=== PATIENT | female | born 1955 | race Caucasian/White ===

== ENCOUNTER 2016-11-21 09:03 | Day surgery (SDC) | payer BC ==
[~2016-11-21] VITALS: Ht 167.6 cm; Wt 85.0 kg
--- NOTE | ~2016-11-21 | CON ---
PATIENT'S NAME: JEIMY OTOOLE [facility] AGE: 61 Y [address] ROOM: [place] [address] LOCATION: GOBS ADMIT DATE: 11/21/2016 Consultation DISCHARGE DATE: 11/22/2016 FAMILY PHYSICIAN: Kang Jon MD ATTENDING PHYSICIAN: Azul Roque DATE OF CONSULTATION: 11/22/2016 REFERRING PHYSICIAN: Tony Casillas MD REASON FOR VISIT: Left lower extremity wound. HISTORY OF PRESENT ILLNESS: This is a pleasant 61-year-old female patient who was admitted to [facility] with a rectocele. She is status post posterior colporrhaphy by Dr. Roque. She has a significant history of type 2 diabetes mellitus, depression, osteoarthritis, and varicose veins. The patient endorses a wound to her left lower extremity for about 2 years. Last week, she expressed pus from the site and was treated with a 3 day course of antibiotics by her primary care provider. Since that time, she has noted improvement in the wound. She is currently applying vitamin E ointment to the site. She denies intermittent claudication symptoms. No history of DVT. She does suffer from varicose veins, but has never had a venous ulcer. No previous vascular studies noted. No recent travel noted. Denies pruritus. Denies fevers, chills, or sweats. No weight loss noted. Is planning to discharge home today. Nursing reports a buttocks wound, she did not know she had it until she came to the hospital. She is wondering if that site needs any treatment. PAST MEDICAL HISTORY: Type 2 diabetes mellitus, depression, osteoarthritis, and varicose veins. PAST SURGICAL HISTORY: Breast reduction, right bunion foot surgery, hysterectomy, and posterior colporrhaphy. FAMILY HISTORY: None listed. SOCIAL HISTORY: The patient lives in [place]. She denies tobacco use. ALLERGIES: PENICILLIN. PATIENT'S NAME: JEIMY OTOOLE [facility] AGE: 61 Y [address] ROOM: [address] [place] [address] LOCATION: [facility] ADMIT DATE: 11/21/2016 Consultation DISCHARGE DATE: 11/22/2016 FAMILY PHYSICIAN: Kang Jon MD ATTENDING PHYSICIAN: Azul Roque CURRENT MEDICATIONS: Please refer to the medication administration record. REVIEW OF SYSTEMS: All are negative except as mentioned above in the HPI. PHYSICAL EXAMINATION: VITAL SIGNS: Temperature 97.8, pulse 85, respirations 20, blood pressure 113/60, and pulse oximetry 93%. Height 5 feet and 6 inches and weight 85.0 kg. GENERAL: The patient is alert and oriented x3. In no acute distress. Pleasant with cares. HEENT: Head: Normocephalic and atraumatic. Oral mucosa intact. NEUROLOGICAL: Grossly nonfocal. MUSCULOSKELETAL: Active range of motion in all 4 extremities. EXTREMITIES: +2 pedal pulses. No edema. Capillary refill intact. Extremities warm to touch. No hemosiderin staining. Small telangiectasia noted. SKIN: Left posterior lower extremity wound measures 2.0 cm width x 2.0 cm length. Area is covered with a brown scab. Periwound is slightly erythemic and indurated. No drainage noted. No fluctuance noted. Right lower buttocks and anus has small scattered red scabs. No drainage noted. LABORATORY DATA: White blood cell count 8.1, hemoglobin 12.8, hematocrit 38.6, and platelets 227. ASSESSMENT AND PLAN: Again, this is a pleasant 61-year-old female patient who was admitted to [facility] with a rectocele. She is status post posterior colporrhaphy. Wound Care consulted to evaluate and assess a left lower extremity and right buttocks wound. 1. Left posterior lower extremity wound present for over 2 years now. The patient recently expressed pus from the site and was treated with a 3-day course of antibiotics. It is improving per her report. No signs of arterial disease. No evidence of pressure or trauma. Uncommon presentation of a venous ulcer. Possibly a staph infection. Send the patient with a script for Bactroban 2% ointment to apply to site t.i.d. x14 days. Also sent her with foam Mepilex dressings and skin protector. Instructed her to cover the scab when it has softened with Bactroban ointment. She can apply the foam dressing and leave in place for up to a week. I offered for her to follow up in [facility], however, she prefers to follow up with Dr. Casillas. I gave her my card. If she has future questions or concerns I would be happy to help. 2. Buttock scabs. Possible folliculitis. No evidence of pressure ulcers. We will treat with Bactroban as well. The patient is to follow up with PATIENT'S NAME: JEIMY OTOOLE [facility] AGE: 61 Y [address] ROOM: [address] [place] [address] LOCATION: [facility] ADMIT DATE: 11/21/2016 Consultation DISCHARGE DATE: 11/22/2016 FAMILY PHYSICIAN: Kang Jon MD ATTENDING PHYSICIAN: Azul Roque Dr. as needed. 3. Rectocele. Status post posterior colporrhaphy. I would like to thank Dr. Casillas for this consult. I wish Jeimy arteaga. PEDRO MCCANN APRN FOR MD SURJIT PATEL/jose luis /[id number] d: 11/22/164 t: 11/28/16 1352, CONSULTATION REPORT
--- NOTE | ~2016-11-21 | OR ---
PATIENT'S NAME: DAVID OTOOLE [facility] AGE: 61 Y [address] ROOM: [address] [address] LOCATION: BS ADMIT DATE: 11/21/2016 OR/Procedure Report DISCHARGE DATE: FAMILY PHYSICIAN: Kang Jon MD ATTENDING PHYSICIAN: Azul Roque SURGEON: Azul Roque MD RAILROAD CAR PAINTER: DATE OF PROCEDURE: 11/21/2016 PREOPERATIVE DIAGNOSIS: Third-degree rectocele. POSTOPERATIVE DIAGNOSIS: Third-degree rectocele. PROCEDURE PERFORMED: Posterior colporrhaphy. ANESTHESIA: General endotracheal. BLOOD LOSS: Less than 50 mL. COMPLICATIONS: None. DESCRIPTION OF PROCEDURE: The patient was taken to the operating room and placed under general endotracheal anesthetic. Her legs were placed in the candy-cane stirrups, and she was tipped in Trendelenburg. Her bladder was drained. She was prepped and draped. The posterior vaginal mucosa was injected with dilute Pitressin. The posterior mucosa was opened with the Metzenbaum scissors, and the rectocele was reduced. I thought maybe there was an enterocele, but I did a rectal check, and it felt like it was all rectocele and no enterocele. There really was not any good fascial tissue to pull together. I pulled together what I could in multiple Aida-Ector plication sutures. The vaginal mucosa was then trimmed and closed with 2-0 Vicryl. I placed a vaginal packing with sulfa cream and left a Simon catheter to dependent drainage with clear yellow urine. The patient tolerated the procedure well. We did cover up 2 boil-type areas on her skin on the left labia and the right buttock with Tegaderm to try to keep the vaginal packing clean. This rectocele was significant, and I talked to the patient that I think her failure rate is high, which will probably be the case. We will have to watch things afterwards and talk with her about lifting restrictions. MD LORIN KIMBROUGHP/gildardol PATIENT'S NAME: DAVID OTOOLE [facility] AGE: 61 Y [address] ROOM: [id number] [place], [place] [address] LOCATION: [facility] ADMIT DATE: 11/21/2016 OR/Procedure Report DISCHARGE DATE: FAMILY PHYSICIAN: Kang Jon MD ATTENDING PHYSICIAN: Azul Roque /[id number] d: 11/21/16 1330 t: 12/01/16 0857, OPERATIVE SUMMARY
[~2016-11-21 09:03] MED LIST: AMARYL4 MG PO; CRESTOR10 MG PO; EFFEXOR XR150 MG PO; EFFEXOR XR75 MG PO; FISH OIL 1,0001 EAC3 PO; INVOKAMET XR 11 EAC1 PO; VITAMIN D35000 UNI1 PO
[2016-11-21 09:50] LABS: BASOPHIL % 0.5 %; EOSINOPHIL # 0.3 K/uL (0.0-0.5); EOSINOPHIL % 3.4 %; HEMATOCRIT 38.6 % (33.0-46.0); HEMOGLOBIN 12.8 g/dL (10.0-15.0); IMMATURE GRANULOCYTE % 0.2 %; LYMPHOCYTE # 1.7 K/uL (0.8-4.0); LYMPHOCYTE % 21.2 %; MCH 29.3 pg (27.0-34.0); MCHC 33.2 gm/dL (32.0-36.5); MCV 88.3 fl (83.0-98.0); MONOCYTE # 0.4 K/uL (0.0-1.0); MONOCYTE % 4.4 %; MPV 10.4 fl (9.4-12.4); NEUTROPHIL # (ANC) 5.7 K/uL (1.8-7.8); NEUTROPHIL % 70.3 %; NRBC % 0 /100WBC (0-0.00); PLATELET COUNT 227 K/uL (150-450); RDW-CV 12.9 % (11.9-14.6); WBC 8.1 K/uL (4.0-11.0)
[2016-11-21 09:51] LABS: RBC 4.37 M/uL (3.50-5.50)
== END 2016-11-22 12:10 | disposition disaster alternative care site (69) ==
LOC: GSDC 09:03 → GOBS 09:03 → GMSU 09:03 → GSDC 11:00 → GOBS 12:48 → GSDC 11-22 12:10
PROVIDERS: Obstetrics & Gynecology
PROC: 0JQC0ZZ Repair Pelvic Region Subcutaneous Tissue and Fascia, Open Approach (ICD-10-PCS; principal; 2016-11-21)
DX: N81.6 Rectocele (principal); E11.9 Type 2 diabetes mellitus without complications; E78.5 Hyperlipidemia, unspecified; F32.9 Major depressive disorder, single episode, unspecified; M19.90 Unspecified osteoarthritis, unspecified site; I83.90 Asymptomatic varicose veins of unspecified lower extremity; R23.4 Changes in skin texture; Z79.84 Long term (current) use of oral hypoglycemic drugs; Z79.899 Other long term (current) drug therapy
CPT/HCPCS: J0131; J0690; J1100; J2250; J2405; J7030